=== PATIENT | female | born 1995 | race African-American/Black ===

== ENCOUNTER 2021-01-05 18:55 | Emergency (ER) | payer OTHER ==
[~2021-01-05] VITALS: Ht 154.9 cm; Wt 59.0 kg
[~2021-01-05 18:55] MED LIST: COLACE 100 MG100 MG PO; FLEXERIL PO; IBUPROFEN 600600 M1 PO; IBUPROFEN 800800 MG PO; MACROBID 100 M100 M1 PO; NOHOMEMEDICATIONS; NORCO 5-325 TA1 EACH PO; NORFLEX100 MG PO; PRENATAL; PROCTOCREAM-HC30 G1 RC; TOBRAMYCIN SULFA5 ML IO; TRAMADOL 50 MG50 MG PO; ULTRAM 50MG TAB50 MG PO; ZOFRAN ODT4 MG PO
[2021-01-05 19:51] LABS: PLATELET COUNT 279 thou/uL (150-400); RDW 13.5 % (10.5-14.5)
[2021-01-05 19:52] LABS: ANION GAP 9 mmol/L (7-16); BUN 9 mg/dL (7-18); CALCIUM 8.9 mg/dL (8.5-10.1); CHLORIDE 105 mmol/L (98-107); CO2 29 mmol/L (21-32); CREATININE 0.9 mg/dL (0.6-1.0); GLUCOSE 98 mg/dL (74-106); POTASSIUM 3.8 mmol/L (3.5-5.1); SODIUM 143 mmol/L (136-145)
[2021-01-05 19:53] LABS: ABSOLUTE NEUTROPHILS 2.8 thou/uL (1.4-8.2); BASOPHILS 0.4 % (0.0-2.0); EOSINOPHILS 4.4 % (0.0-3.0); HEMATOCRIT 41.7 % (37.0-47.0); HEMOGLOBIN 13.9 gm/dL (12.0-15.0); LYMPHOCYTES 45.9 % (24.0-44.0); MCH 30.4 pg (26.0-34.0); MCHC 33.3 g/dL (28.0-37.0); MONOCYTES 8.9 % (1.0-8.0); POLYS 40.4 % (36.0-66.0); RBC 4.58 mil/uL (4.20-5.00); WBC 6.9 thou/uL (4.0-11.0)
[2021-01-05 19:55] LABS: URINE BILIRUBIN NEGATIVE (Negative); URINE BLOOD 3+ (Negative); URINE CLARITY CLEAR; URINE COLOR YELLOW; URINE GLUCOSE-RANDOM* NEGATIVE (Negative); URINE KETONES NEGATIVE (Negative); URINE LEUKOCYTES-REFLEX NEGATIVE (Negative); URINE NITRITE-REFLEX NEGATIVE (Negative); URINE PROTEIN (DIPSTICK) TRACE (Negative); URINE SPECIFIC GRAVITY 1.025 (1.005-1.035); URINE UROBILINOGEN 0.2 E.U./dl (0.2-1.0)
[2021-01-05 20:00] LABS: TROPONIN-I <0.06 ng/mL (<0.06)
[2021-01-05 20:05] LABS: SQUAMOUS >10 Many /LPF (0-3)
[2021-01-05 20:06] LABS: CASTS None Seen /LPF (None Seen); CRYSTALS None Seen /LPF (None Seen); URINE RBC 0-2 Rare /HPF (0-2); URINE WBC-REFLEX 6-15 Few /HPF (0-5)
[2021-01-05] MEDS ORDERED: OMEPRAZOLE 20 M20 M1 PO (20:31)
[2021-01-05] MEDS ORDERED: CARAFATE 1 GM TA1 G1 PO (20:31)
[2021-01-05 20:54] VITALS: BP 106/74
--- NOTE | 2021-01-06 07:05 | EKG ---
[address] [address] ELECTROCARDIOGRAM REPORT Name: KEYUR MARSHALL Room #: [facility] BHAVIN Lazo#: [id number] Admission: 01/05/21 Attend Phys: Discharge: 01/05/21 Date of : [birth year] Report #: [id number] [facility] ED Test Date: 2021-01-05 Test Time: 19:03:12 Pat Name: KEYUR MARSHALL Department: Room: Gender: F Psychiatric Attendant: domenica : 1995 Requested By: Agapito Solis Order Number: [id number] MD: Dain Sullivan Measurements Intervals [place] Rate: 83 P: 67 DE: 173 QRS: -1 QRSD: 82 T: 35 QT: 355 QTc: 418 Interpretive Statements Sinus rhythm Compared to ECG 03/30/2013 16:12:26 Sinus arrhythmia no longer present Electronically Signed On 01-06-2021 7:05:15 CDT by Dain Sullivan [email or web address] <ELECTRONICALLY SIGNED> By: Dain Sullivan MD, [facility] 01/06/21 0705 [id number] Dain Sullivan MD, FACC /EPI
== END 2021-01-05 20:43 | disposition home or self-care (01) ==
LOC: ER 18:55
PROVIDERS: Nurse Practitioner
DX: R07.89 Other chest pain (principal); R42 Dizziness and giddiness; J45.909 Unspecified asthma, uncomplicated

== ENCOUNTER 2021-04-30 11:32 | Emergency (ER) | payer OTHER ==
[~2021-04-30] VITALS: Ht 154.9 cm; Wt 49.9 kg
[~2021-04-30 11:32] MED LIST changes: +CARAFATE 1 GM TA1 G1 PO; +OMEPRAZOLE 20 M20 M1 PO
[2021-04-30 11:44] VITALS: BP 108/62
[2021-04-30] MEDS ORDERED: MOBIC7.5 MG PO (13:47)
[2021-04-30] MEDS ORDERED: ZANAFLEX4 MG PO (13:47)
[2021-04-30] MEDS ORDERED: PREDNISONE 20 M20 MG PO (13:47)
== END 2021-04-30 13:40 | disposition home or self-care (01) ==
LOC: ER 11:32
DX: M54.5 Low back pain (principal); J45.909 Unspecified asthma, uncomplicated